=== PATIENT | female | born 1995 | race Hispanic/Latino ===

== ENCOUNTER 2018-10-18 17:46 | Observation (INO) | payer OTHER ==
[~2018-10-18] VITALS: Ht 149.9 cm; Wt 61.7 kg
[2018-10-18 18:31] LABS: APPEARANCE,URINE Clear (CLEAR); BILIRUBIN,URINE Negative (NEGATIVE); COLOR,URINE Dark Yellow (YELLOW); GLUCOSE, URINE (UA) Negative (NEGATIVE); KETONES,URINE Trace mg/dL (NEGATIVE); LEUKOCYTE ESTERASE ,URINE Moderate (NEGATIVE); NITRATE,URINE Positive (NEGATIVE); OCCULT BLOOD,URINE Small (NEGATIVE); PROTEIN,URINE Negative (NEGATIVE)
[2018-10-18 18:38] LABS: AMORPHOUS SEDIMENT,UR Trace /LPF (None Seen)
[2018-10-18 18:41] LABS: MUCUS,URINE Many LPF (None Seen)
[2018-10-18 18:42] LABS: BACTERIA,URINE Many /HPF (None Seen)
[2018-10-18 18:45] LABS: AMPHET/METH SCREEN,URINE NEGATIVE (NEGATIVE); BARBITURATE SCREEN, URINE NEGATIVE (NEGATIVE); BENZODIAZEPINES SCREEN,URINE NEGATIVE (NEGATIVE); CANNABINOID SCREEN,URINE NEGATIVE (NEGATIVE); COCAINE SCREEN,URINE NEGATIVE (NEGATIVE); OPIATE SCREEN,URINE NEGATIVE (NEGATIVE); PHENCYCLIDINE SCREEN,URINE NEGATIVE (NEGATIVE)
[2018-10-18] MEDS ORDERED: LACTATED RINGERS 1000ML IV SCH (19:15)
[2018-10-18] MEDS ORDERED: CEFTRIAXONE SODIUM 2 GM VIAL IVP SCH (19:30)
[2018-10-18] MEDS ORDERED: LACTATED RINGERS 1000ML 1,000 ML IV ONE (19:31)
[2018-10-18] MEDS ORDERED: CEFTRIAXONE SODIUM 1 GM ONE (19:31)
== END 2018-10-18 21:04 | disposition home or self-care (01) ==
LOC: EDH 17:46 → EEVIPCON 17:46 → LDH 18:04
PROVIDERS: ADMIT Obstetrics & Gynecology; ATTEND Obstetrics & Gynecology
DX: O26.892 Other specified pregnancy related conditions, second trimester (principal); R10.2 Pelvic and perineal pain; R10.30 Lower abdominal pain, unspecified; O99.612 Diseases of the digestive system complicating pregnancy, second trimester; K59.00 Constipation, unspecified; Z3A.23 23 weeks gestation of pregnancy; Z79.899 Other long term (current) drug therapy
CPT/HCPCS: 80305; 81001; 99284; G0378 ×3; J0696; J7120; 96360